=== PATIENT | male | born 1960 | race Caucasian/White ===

== ENCOUNTER 2023-07-30 09:48 | Outpatient (CLI) | payer BC, MEDICAID ==
[~2023-07-30 09:48] MED LIST: ACET-890 PO; ASPI-778 PO; IBUP-1985 PO; [UNRECOGNIZED DRUG - CODE] PO
== END 2023-07-30 23:59 | disposition home or self-care (01) ==
LOC: MRI 09:48
PROVIDERS: ATTEND Pediatrics Sports Medicine
DX: M94.261 Chondromalacia, right knee (principal); M25.561 Pain in right knee; M25.461 Effusion, right knee; M71.21 Synovial cyst of popliteal space [Baker], right knee
CPT/HCPCS: 73721

== ENCOUNTER 2024-02-25 11:42 | Outpatient (CLI) | payer BC | END 2024-02-25 23:59 | disposition home or self-care (01) | LOC: MRI02 11:42 | PROVIDERS: ATTEND Orthopaedic Surgery | DX: S83.272A Complex tear of lateral meniscus, current injury, left knee, initial encounter (principal); M94.262 Chondromalacia, left knee; M79.4 Hypertrophy of (infrapatellar) fat pad; M25.462 Effusion, left knee; X58.XXXA Exposure to other specified factors, initial encounter; Y93.89 Activity, other specified; Y92.89 Other specified places as the place of occurrence of the external cause; Y99.8 Other external cause status | CPT/HCPCS: 73721 ==